=== PATIENT | male | born 1985 | race Caucasian/White ===

== ENCOUNTER → 2016-07-11 | Outpatient (CLI) | payer OTHER ==
--- NOTE | 2016-07-11 14:11 | ECHOF ---
DATE OF PROCEDURE July 11, 2016 This is a two-dimensional echo with spectral Doppler, color-flow and M-mode. Left atrial dimension is normal. Left ventricle end-diastolic dimension is normal. Left ventricle wall thickness is normal. LV systolic function is normal with ejection fraction of 62%. Right atrium is normal. Right ventricle is normal. Aortic root dimension is normal. Mitral, aortic, tricuspid and pulmonary valves are morphologically normal with trace of mitral regurgitation, mild tricuspid regurgitation and mild pulmonary insufficiency with normal estimated pulmonary artery systolic pressure of 31. There is no pericardial effusion. IMPRESSION 1. Normal LV systolic function with ejection fraction of 62%. 2. Trace of mitral regurgitation. 3. Mild tricuspid regurgitation with normal estimated pulmonary artery systolic pressure of 31. 4. Mild pulmonary insufficiency. MTDD
== END ==
LOC: IMA 10:27
DX: I07.1 Rheumatic tricuspid insufficiency (principal); I37.1 Nonrheumatic pulmonary valve insufficiency
CPT/HCPCS: 93306